=== PATIENT | male | born 1960 | race Caucasian/White ===

== ENCOUNTER 2016-06-24 13:15 | Inpatient (IN) | payer OTHER ==
[~2016-06-24] VITALS: Ht 175.3 cm; Wt 110.3 kg
[~2016-06-24 13:15] MED LIST: AMLO-110 PO; INDO50CA97 PO; LISI40TA PO; PANT1TAB48 PO; SIMV20TA5 PO
[2016-06-24] MEDS ORDERED: SODIUM CHLORIDE 0.9% 1000ML 1,000 ML IV STA ×3 (14:15→15:54)
[2016-06-24] MEDS ORDERED: ALBUT/IPRATROP 3MG/0.5MG NEB 3 ML VIAL INH ONE (14:15)
[2016-06-24] MEDS ORDERED: METHYLPREDNISOLONE 125 MG VIAL IV STA (14:15)
[2016-06-24] MEDS ORDERED: AZITTAB PO (14:25)
[2016-06-24] MEDS ORDERED: PRED20TA PO (14:32)
[2016-06-24 14:55] VITALS: PULSE 96; O2SAT 94
--- NOTE | 2016-06-24 14:55 | DIAGNOSTIC IMAGING REPORT ---
CHEST ONE VIEW PORTABLE CLINICAL HISTORY: Shortness of breath COMPARISON STUDY: 08/08/2012 FINDINGS: The heart is enlarged. There are left basal airspace opacities, suspicious for pneumonitis. There is no overt failure. There is no significant pleural fluid.[ IMPRESSION: Mild cardiomegaly. Interval development of left basal airspace opacities suspicious for a pneumonitis. This should be correlated clinically. Films subsequent to treatment are recommended in follow-up. Electronically signed by: Guru De La Cruz M.D. 06/24/2016 2:53 PM
[2016-06-24 15:18] LABS: BASO % 0.1 %; BASO ABS # 0.01 K/uL (0-0.2); COMPLETE YES; HEMATOCRIT 38.4 % (42-52); IG% 0.3 %; LYMPH % 5.4 %; LYMPH ABS # 0.67 K/uL (1.2-3.4); MEAN CELL VOLUME 94.8 fL (80-100); MEAN CORPUSCULAR HEMOGLOBIN 33.8 pg (25-34); MEAN CORPUSCULAR HGB CONC 35.7 g/dl (32-36); MEAN PLATELET VOLUME 11.3 fL (7.4-10.4); MONO % 5.2 %; PLATELET COUNT 193 K/uL (130-400); RED BLOOD COUNT 4.05 M/uL (4.7-6.1); WHITE BLOOD COUNT 12.37 K/uL (4.8-10.8)
[2016-06-24] MEDS ORDERED: LEVAQUIN 750MG / 150ML D5W IV STA (15:34)
[2016-06-24 15:37] LABS: BLOOD UREA NITROGEN 43 mg/dl (7-18); BUN/CREATININE RATIO 17.4 (10-20); CALCIUM 9.2 mg/dl (8.5-10.1); CARBON DIOXIDE 22 mmol/L (21-32); CHLORIDE 102 mmol/L (98-107); GLUCOSE 170 mg/dl (70-99); POTASSIUM 3.3 mmol/L (3.5-5.1); SODIUM 138 mmol/L (136-145)
[2016-06-24] MEDS ORDERED: ACETAMINOPHEN 325 MG TAB PO PRN (17:15)
[2016-06-24] MEDS ORDERED: POLYETHYLENE (MIRALAX) 17 GM PACK PO PRN (17:15)
[2016-06-24] MEDS ORDERED: INDOMETHACIN 25 MG CAP PO PRN (17:15)
[2016-06-24] MEDS ORDERED: ALUMINUM/MAGNESIUM/SIMETH (MAALOX MAX) 30 ML UDC PO PRN (17:15)
[2016-06-24] MEDS ORDERED: ONDANSETRON INJ 2 MG/ML 2 ML VIAL IV PRN (17:15)
[2016-06-24] MEDS ORDERED: MAGNESIUM HYDROXIDE SUSP 30 ML UDC PO PRN (17:15)
[2016-06-24] MEDS ORDERED: NICOTINE 21 MG/24 HR TDSY TD PRN (17:30)
[2016-06-24] MEDS ORDERED: SODIUM CHLORIDE 0.9% 1000ML 1,000 ML IV SCH (17:30)
--- NOTE | 2016-06-24 17:54 | History and Physical ---
History & Physical Date & Time of Service: Jun 24, 2016 at 17:31 Chief Complaint: SOB Primary Care Physician: Soham Mcclain M.D. History of Present Illness Source: patient Mr. Cheema is a 55 y/o male with PMHx of Asthma, GERD, HLD, HTN, and CKD Stage I who presents to the ED for complaints of worsening SOB and productive cough x several days. Patient reports he was at his PCP yesterday and diagnosed with PNA and given Prednisone taper and Z-tano that he has started. He states that symptoms did not worsen since presentation to the ED however he did notice pink blood tinged sputum after using home nebulizer treatment. He does report fevers with the highest being 102.7. He has been using Ibuprofen without relief. He reports that he had rhinorrhea that has improved. Associated lightheadedness without falls, sore throat, and dyspnea on exertion. He reports decreased appetite over past few days but reports he is hungry now. He is a 1 1/2 ppd cigarette smoker. In the ED, lactic acid elevated, mild leukocytosis, normotensive, and afebrile. CXR suggest LLL opacity more consistent with pneumonitis. Levaquin 750 mg IV, Solu-Medrol 125 mg, and Duoneb treatment initiated. He will be admitted to Med/ Surg for further evaluation and care. Reassessment - Patient lactic acid returned at 4.8. Patient assessed at ED beside. Will transfer patient to telemetry for Sepsis 2/2 CAP. Patient remains normotensive however reports his BPs are normally 130/70s. He has received 3L fluids. Patient does not report worsening of symptoms and is resting in bed in no acute distress without labored breathing. Will continue to hydrate him and trend labs in AM. 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) Drug Use: none Marital Status: Immunizations History of Influenza Vaccine: No Influenza Vaccine Date: May 09, 2007 History of Tetanus Vaccine?: No History of Pneumococcal: No History of Hepatitis B Vaccine: No Multi-Drug Resistant Organisms History of MDRO: No Allergies Coded Allergies: No Known Allergies (Verified , 06/24/16) Home Medications Scheduled Amlodipine (Norvasc), 5 MG PO QAM Azithromycin (Zithromax Z-Tano), 1 PKT PO UD Lisinopril (Zestril), 40 MG PO QAM Pantoprazole (Protonix), 40 MG PO QAM Prednisone (Prednisone), 20 MG PO DIRECTED Simvastatin (Zocor), 20 MG PO QPM Scheduled PRN Indomethacin (Indocin), 50 MG PO TID PRN for APIN Review of Systems Constitutional: + fever, No chills, No sweats Eyes: No worsening of vision ENT: + sore throat, No nasal symptoms Respiratory: + cough, + dyspnea on exertion, + sputum, + wheezing, No dyspnea at rest Cardiovascular: No chest pain Abdomen: No constipation, No diarrhea, No nausea, No pain, No vomiting Musculoskeletal: No calf pain, No swelling Genitourinary - Male: No dysuria Neurologic: + vertigo Endocrine: + fatigue Hematologic / Lymphatic: No abnormal bleeding/bruising, No clotting problems Integumentary: No rash Physical Exam Vital Signs Date Time Temp Pulse Resp B/P Pulse Ox O2 Delivery O2 Flow Rate FiO2 06/24/16 15:21 82 17 116/70 95 Nebulizer 7.0 06/24/16 14:55 96 22 94 Room Air 06/24/16 14:39 87 06/24/16 13:34 36.4 90 20 122/76 94 Room Air General Appearance: WD/WN, no apparent distress, + pertinent finding (poor dentition; breaths mostly through mouth) Head: normocephalic, atraumatic Eyes: sclerae normal ENT: hearing grossly normal Neck: supple, no JVD, trachea midline Respiratory/Chest: no respiratory distress, no accessory muscle use, + wheezing (minimal scattered expiratory wheezes throughout; rhonchi bases bilat) Cardiovascular: regular rate, rhythm, no gallop, no murmur Abdomen/GI: normal bowel sounds, non tender, soft Back: normal inspection, no CVA tenderness Extremities/Musculoskelatal: no calf tenderness, no pedal edema Neurologic/Psych: no motor/sensory deficits, alert, oriented x 3 Skin: normal color, warm/dry Diagnostics Laboratory Results Results Past 24 Hours Test 06/24/16 15:00 06/24/16 15:08 06/24/16 17:11 Range/Units White Blood Count 12.37 4.8-10.8 K/uL Red Blood Count 4.05 4.7-6.1 M/uL Hemoglobin 13.7 14.0-18.0 g/dL Hematocrit 38.4 42-52 % Mean Corpuscular Volume 94.8 80-100 fL Mean Corpuscular Hemoglobin 33.8 25-34 pg Mean Corpuscular Hemoglobin Concent 35.7 32-36 g/dl Platelet Count 193 130-400 K/uL Mean Platelet Volume 11.3 7.4-10.4 fL Neutrophils (%) (Auto) 89.0 % Lymphocytes (%) (Auto) 5.4 % Monocytes (%) (Auto) 5.2 % Eosinophils (%) (Auto) 0.0 % Basophils (%) (Auto) 0.1 % Neutrophils # (Auto) 11.01 1.4-6.5 K/uL Lymphocytes # (Auto) 0.67 1.2-3.4 K/uL Monocytes # (Auto) 0.64 0.11-0.59 K/uL Eosinophils # (Auto) 0.00 0-0.5 K/uL Basophils # (Auto) 0.01 0-0.2 K/uL RDW Standard Deviation 48.8 36.4-46.3 fL RDW Coefficient of Variation 14.1 11.5-14.5 % Immature Granulocyte % (Auto) 0.3 % Immature Granulocyte # (Auto) 0.04 0.00-0.02 K/uL D-Dimer 1070 0-500 ug/L FEU Sodium Level 138 136-145 mmol/L Potassium Level 3.3 3.5-5.1 mmol/L Chloride Level 102 98-107 mmol/L Carbon Dioxide Level 22 21-32 mmol/L Anion Gap 14.0 3-11 mmol/L Blood Urea Nitrogen 43 7-18 mg/dl Creatinine 2.50 0.60-1.40 mg/dl Est Creatinine Clear Calc Drug Dose 39.1 ml/min Estimated GFR () 32.1 Estimated GFR (Non- 27.7 BUN/Creatinine Ratio 17.4 10-20 Random Glucose 170 70-99 mg/dl Calcium Level 9.2 8.5-10.1 mg/dl Total Creatine Kinase 199 39-308 U/L Creatine Kinase MB 1.9 0.5-3.6 ng/ml Creatine Kinase MB Ratio 1.0 0-3.0 Troponin I < 0.015 0-0.045 ng/ml Bedside Lactic Acid Venous 2.78 0.90-1.70 mmol/L Microbiology Results 06/24/16 Blood Culture, Received Pending 06/24/16 Blood Culture, Received Pending Diagnostic Radiology CHEST ONE VIEW PORTABLE CLINICAL HISTORY: Shortness of breath COMPARISON STUDY: 08/08/2012 FINDINGS: The heart is enlarged. There are left basal airspace opacities, suspicious for pneumonitis. There is no overt failure. There is no significant pleural fluid.[ IMPRESSION: Mild cardiomegaly. Interval development of left basal airspace opacities suspicious for a pneumonitis. This should be correlated clinically. Films subsequent to treatment are recommended in follow-up. Electronically signed by: Guru De La Cruz M.D. 06/24/2016 2:53 PM Impression Assessment and Plan Mr. Cheema is a 55 y/o male with PMHx of Asthma, GERD, HLD, HTN, and CKD Stage I who presents to the ED for complaints of worsening SOB and productive cough x several days. In the ED, lactic acid elevated, mild leukocytosis, normotensive, and afebrile. CXR suggest LLL opacity more consistent with pneumonitis. Levaquin 750 mg IV, Solu-Medrol 125 mg, and Duoneb treatment initiated. He will be admitted to Med/Surg for further evaluation and care. Sepsis: - Assessment - a respiratory source is likely - will R/O urinary source - BMP now - Telemetry for closer monitoring Community Acquired Pneumonia with Possible Asthma Exacerbation: Elevated Lactic - Assessment - imaging suggesting LLL opacity but notes pneumonitis; patient chest is tight to auscultation with expiratory wheezing -- D-Dimer 1070 however patient is not hypoxic and this has been a progressive course - Repeat lactic acid now - Levoquin 750 mg IV daily - Cefepime 2 g Q12H - Methylprednisone 40 mg IV BID - Duonebs QID and Q2H PRN - Continuous Pulse Ox overnight EMELYN Superimposed on CKD Stage I: - NSS at 125 mL/hr - Will hold Lisinopril in setting of EMELYN - Avoid nephrotoxic agents HTN: - Will hold Amlodipine 5 mg daily - Lisinopril held 2/2 EMELYN - Hydralazine 10 mg IV PRN HLD: - Simvastatin 20 mg daily DVT Prophylaxis: - Lovenox 40 mg SC daily Code Status: - FULL RESUSCITATION PA Physician Supervision Note: I interviewed and examined the patient. Discussed with Anisha DENG and agree with findings and plan as documented in the note. Any exceptions or clarifications are listed here: None pt admitted with pneumonitis but clinically acting like sepsis, does not have health care exposure with exception that is nurse at long term repeat LA did go up past 4, reasses of tissue perfusion, seems good, pt is awake and alert, warm and good cap refill, additional fluids given vitals lungs with coarse breath sounds but no focal loss, no other clinical findings for other infection Sepsis, broaden the antibiotics to Cefepime and levaquin, close monitoring in tele, may consider ID evaluation and repeat cxr 06/25 Documented By: Lex Fonseca Level of Care Med/Surg Resuscitation Status FULL RESUSCITATION VTE Prophylaxis VTE Risk Assessment Done? Y/N: Yes Risk Level: Moderate Given or contraindicated: Enoxaparin (Lovenox)SQ Social Service Consult None Apply
[2016-06-24] MEDS ORDERED: HydrALAZINE HCL 20 MG/ML VIAL IV. PRN (18:00)
[2016-06-24] MEDS ORDERED: ALBUT/IPRATROP 3MG/0.5MG NEB 3 ML VIAL INH PRN (19:30)
[2016-06-24 20:30] VITALS: BP 123/65; PULSE 96; TEMP 36.7; O2SAT 94; Ht 175.3 cm; Wt 110.3 kg
[2016-06-24 20:33] LABS: BUN/CREATININE RATIO 17.9 (10-20); CALCIUM 8.4 mg/dl (8.5-10.1); CREATININE 2.2 mg/dl (0.60-1.40); POTASSIUM 3.1 mmol/L (3.5-5.1)
--- NOTE | 2016-06-24 20:38 | EMERGENCY ROOM VISIT NOTE ---
History Report prepared by Arnel: Kristina Tejada Under the Supervision of: Dr. Tommy Schroeder M.D. First contact with patient: 14:10 Chief Complaint: SHORTNESS OF BREATH Stated Complaint: SOB Nursing Triage Summary: Pt states dx last night pnx, given z-tano, inhaler and prednisone. Prod cough of pink/clear sputum. [place] after doing neb tx. History of Present Illness The patient is a 55 year old male who presents to the Emergency Room with complaints of worsening shortness of breath for the past few days. He was diagnosed with pneumonia at his PCP's office yesterday and started on prednisone and a Z-Tano. He notes fevers, cough, and slight rhinorrhea. He has been using a breathing treatment and notes that afterwards he coughs up phlegm that is tinged with pink. He is feeling lightheaded and notes a decreased appetite for the past 4 days. The patient denies chest pain, recent travel, leg swelling, and any history of blood clots. He does not take any aspirin or blood thinners. Source of History: patient Onset: 4 days ago Position: chest (respiratory) Quality: other (SOB) Timing: worsening Modifying Factors (Relieving): other (breathing treatment ) Associated Symptoms: + cough (with pink sputum), + fevers Note: Pt notes lightheadedness and rhinorrhea. Denies recent travel, leg swelling, and history of blood clots. Review of Systems See HPI for pertinent positives & negatives. A total of 10 systems reviewed and were otherwise negative. Past Medical & Surgical Medical Problems: (1) Asthma (2) Hypertension (3) Pneumonia (4) Sepsis Surgical Problems: (1) Hx of cholecystectomy Family History Diabetes mellitus Hypertension Social History Smoking Status: Current Every Day Smoker Alcohol Use: occasionally Marital Status: Housing Status: lives with significant other Occupation Status: retired Current/Historical Medications Scheduled Amlodipine (Norvasc), 5 MG PO QAM Azithromycin (Zithromax Z-Tano), 1 PKT PO UD Lisinopril (Zestril), 40 MG PO QAM Pantoprazole (Protonix), 40 MG PO QAM Prednisone (Prednisone), 20 MG PO DIRECTED Simvastatin (Zocor), 20 MG PO QPM Scheduled PRN Indomethacin (Indocin), 50 MG PO TID PRN for APIN Allergies Coded Allergies: No Known Allergies (Verified , 06/24/16) Physical Exam Vital Signs Date Time Temp Pulse Resp B/P Pulse Ox O2 Delivery O2 Flow Rate FiO2 06/24/16 18:59 109/76 06/24/16 18:55 100 20 06/24/16 18:42 100 06/24/16 18:29 134/87 06/24/16 18:25 106 24 06/24/16 18:20 97 22 06/24/16 17:58 120/69 06/24/16 17:50 104 25 06/24/16 17:28 118/61 06/24/16 17:20 119 25 06/24/16 17:15 109 21 06/24/16 16:59 106/75 06/24/16 16:45 107 20 95 06/24/16 16:29 111/73 06/24/16 16:15 104 27 06/24/16 15:59 130/67 06/24/16 15:45 103 20 06/24/16 15:28 128/72 06/24/16 15:21 82 17 116/70 95 Nebulizer 7.0 06/24/16 15:19 116/70 06/24/16 15:15 96 17 06/24/16 14:55 96 22 94 Room Air 06/24/16 14:45 91 20 06/24/16 14:39 87 06/24/16 13:34 36.4 90 20 122/76 94 Room Air Physical Exam GENERAL: Patient is ill appearing and in mild distress. HEENT: No acute trauma, normocephalic atraumatic, mucous membranes dry, no nasal congestion, no scleral icterus. NECK: No stridor, no adenopathy, no meningismus, trachea is midline. LUNGS: Diffuse wheezing in all lung mack, decreased breath sounds left lower lobe, crackles in mid left lung mack. HEART: Regular rate and rhythm. No murmurs, rubs, gallops appreciated. ABDOMEN: Soft, nontender, bowel sounds positive, no masses appreciated, no peritonitis. BACK: No midline tenderness, no CVA tenderness EXTREMITIES: Normal motion all extremities, no cyanosis, no edema. NEUROLOGIC: Alert and oriented, no acute motor or sensory deficits, no focal weakness, cranial nerves grossly intact. SKIN: Diaphoretic. No rash, no jaundice. Medical Decision & Procedures ER Provider Diagnostic Interpretation: Radiology results as stated below per my review and radiologist interpretation: CHEST ONE VIEW PORTABLE CLINICAL HISTORY: Shortness of breath COMPARISON STUDY: 08/08/2012 FINDINGS: The heart is enlarged. There are left basal airspace opacities, suspicious for pneumonitis. There is no overt failure. There is no significant pleural fluid.[ IMPRESSION: Mild cardiomegaly. Interval development of left basal airspace opacities suspicious for a pneumonitis. This should be correlated clinically. Films subsequent to treatment are recommended in follow-up. Electronically signed by: Guru De La Cruz M.D. 06/24/2016 2:53 PM Laboratory Results 06/24/16 15:00 Red Blood Count 4.05, Mean Corpuscular Volume 94.8, Mean Corpuscular Hemoglobin 33.8, Mean Corpuscular Hemoglobin Concent 35.7, Mean Platelet Volume 11.3, Neutrophils (%) (Auto) 89.0, Lymphocytes (%) (Auto) 5.4, Monocytes (%) (Auto) 5.2, Eosinophils (%) (Auto) 0.0, Basophils (%) (Auto) 0.1, Neutrophils # (Auto) 11.01, Lymphocytes # (Auto) 0.67, Monocytes # (Auto) 0.64, Eosinophils # (Auto) 0.00, Basophils # (Auto) 0.01 Test 06/24/16 15:00 06/24/16 15:08 06/24/16 17:41 White Blood Count 12.37 K/uL (4.8-10.8) Red Blood Count 4.05 M/uL (4.7-6.1) Hemoglobin 13.7 g/dL (14.0-18.0) Hematocrit 38.4 % (42-52) Mean Corpuscular Volume 94.8 fL (80-100) Mean Corpuscular Hemoglobin 33.8 pg (25-34) Mean Corpuscular Hemoglobin Concent 35.7 g/dl (32-36) Platelet Count 193 K/uL (130-400) Mean Platelet Volume 11.3 fL (7.4-10.4) Neutrophils (%) (Auto) 89.0 % Lymphocytes (%) (Auto) 5.4 % Monocytes (%) (Auto) 5.2 % Eosinophils (%) (Auto) 0.0 % Basophils (%) (Auto) 0.1 % Neutrophils # (Auto) 11.01 K/uL (1.4-6.5) Lymphocytes # (Auto) 0.67 K/uL (1.2-3.4) Monocytes # (Auto) 0.64 K/uL (0.11-0.59) Eosinophils # (Auto) 0.00 K/uL (0-0.5) Basophils # (Auto) 0.01 K/uL (0-0.2) RDW Standard Deviation 48.8 fL (36.4-46.3) RDW Coefficient of Variation 14.1 % (11.5-14.5) Immature Granulocyte % (Auto) 0.3 % Immature Granulocyte # (Auto) 0.04 K/uL (0.00-0.02) D-Dimer 1070 ug/L FEU (0-500) Total Creatine Kinase 199 U/L (39-308) Creatine Kinase MB 1.9 ng/ml (0.5-3.6) Creatine Kinase MB Ratio 1.0 (0-3.0) Troponin I < 0.015 ng/ml (0-0.045) Bedside Lactic Acid Venous 2.78 mmol/L (0.90-1.70) Lactic Acid Level 4.8 mmol/L (0.4-2.0) Laboratory results as reviewed by me. Medications Administered Medications (Trade) Dose Ordered Sig/Eusebia Route Start Time Stop Time Status Last Admin Dose Admin Sodium Chloride (Nss 1000ml) 1,000 ml @ 999 mls/hr Q1H1M STAT IV 06/24/16 14:15 06/24/16 15:15 DC 06/24/16 15:22 999 MLS/HR Methylprednisolone Sodium Succinate (Solu-Medrol IV) 125 mg NOW STAT IV 06/24/16 14:15 06/24/16 14:17 DC 06/24/16 15:22 125 MG Albuterol/ Ipratropium 12 ml 12 ml ONE ONCE INH 06/24/16 14:15 06/24/16 14:17 DC 06/24/16 14:55 12 ML Sodium Chloride (Nss 1000ml) 1,000 ml @ 999 mls/hr Q1H1M STAT IV 06/24/16 15:34 06/24/16 16:34 DC 06/24/16 17:34 999 MLS/HR Levofloxacin 750 mg 750 mg NOW STAT IV 06/24/16 15:34 06/24/16 15:35 DC 06/24/16 16:37 750 MG Sodium Chloride (Nss 1000ml) 1,000 ml @ 999 mls/hr Q1H1M STAT IV 06/24/16 15:54 06/24/16 16:54 DC 06/24/16 17:34 999 MLS/HR ECG Indication: SOB/dyspnea Rate (beats per minute): 84 Rhythm: sinus rhythm Findings: PAC, no acute ischemic change ED Course 1410: The patient was evaluated in room C6. A complete history and physical exam was performed. 1415: Duoneb 12 ml INH, Solu-Medrol 125 mg IV, NSS 1000 ml @ 999 mls/hr IV 1534: Levofloxacin 750 mg IV, NSS 1000 ml @ 999 mls/hr IV 1554: NSS 1000 ml @ 999 mls/hr IV 1557: I reassessed the patient at this time. He is resting comfortably. I discussed the results and treatment plan with the patient. I answered all pertaining questions that he had. He expressed understanding and verbalized agreement. 1615: I spoke with Dr. Fonseca. We discussed the patient's results and treatment plan. The patient will be evaluated by the [facility] for further management. Medical Decision Differential: Infectious, Reactive Airway Disease, Pneumonia, Pneumothorax, COPD , CHF, ACS, Pulmonary Embolism, MSK, GI, Dissection, amongst other etiologies entertained. 55 yr old septic male with LLL infiltrate and ill appearing though not acutely hypoxic nor hypotensive on arrival. Labs reveal he is in acute renal failure thus will hold on CT at this time. Fluid resus, IV levaquin, and will bring in to hospital for further treatment. Lactic acid elevated consistent with sepsis. Patient stable throughout ED stay. Consults Time Called: 161 Consulting Physician: Dr. Fonseca Returned Call: [address] Fonseca. We discussed the patient's results and treatment plan. The patient will be evaluated by the [facility] for further management. Impression Primary Impression: Pneumonia Additional Impressions: Sepsis, Acute renal failure Scribe Attestation The scribe's documentation has been prepared under my direction and personally reviewed by me in its entirety. I confirm that the note above accurately reflects all work, treatment, procedures, and medical decision making performed by me. Departure Information Dispostion Being Evaluated By Hospitalist Referrals Soham Mcclain M.D. (PCP) Patient Instructions A Signature Page, My [facility]
[2016-06-24] MEDS ORDERED: LEVOFLOXACIN CONSULT ACTIVE PRN (20:45)
[2016-06-24] MEDS ORDERED: CEFEPIME CONSULT ACTIVE PRN ×2 (20:45)
[2016-06-24 20:58] LABS: PROTHROMBIN TIME (PATIENT) 10.4 SECONDS (9.0-12.0)
[2016-06-24] MEDS ORDERED: POTASSIUM CHLORIDE 10 MEQ TABCR PO ONE (21:00)
[2016-06-24] MEDS ORDERED: LEVALBUTEROL 1.25MG/0.5ML NEB INH SCH (21:00)
[2016-06-24] MEDS: CEFEPIME IV 2,000 MG in DEXTROSE 5% 100ML 100 ML IV SCH (21:28)
[2016-06-24] MEDS: SIMVASTATIN 20 MG TAB PO SCH (21:29)
[2016-06-24] MEDS: POTASSIUM CHLORIDE INJ 40 MEQ in SODIUM CHLORIDE 0.9% 1000ML 1,000 ML IV SCH (22:05)
[2016-06-24] MEDS: ENOXAPARIN 40 MG/0.4 ML SYR SQ SCH (22:09)
[2016-06-24 23:20] VITALS: BP 96/60; PULSE 98; TEMP 36.6; O2SAT 93
[2016-06-25] VITALS (13 sets, daily range): BP systolic 126–132; BP diastolic 64–83; PULSE 56–100; TEMP 36.3–36.8; O2SAT 92–97
[2016-06-25] MEDS ORDERED: IPRATROPIUM BROMIDE NEB SOLN 0.02% 2.5 ML VIAL INH SCH
[2016-06-25 04:10] LABS: URINE APPEARANCE CLEAR (CLEAR); URINE BILIRUBIN NEG (NEG); URINE COLOR YELLOW; URINE EPITHELIAL CELL AUTO >30 /lpf (0-5); URINE NITRITE NEG (NEG); URINE SPECIFIC GRAVITY 1.017 (1.000-1.030); UROBILINOGEN NEG (NEG); ZZUR CULT IF INDIC CLEAN CATCH NO
[2016-06-25 04:18] LABS: MANUAL MICROSCOPIC REQUIRED? NO; REVIEW REQ? YES
[2016-06-25] MEDS: POTASSIUM CHLORIDE INJ 40 MEQ in SODIUM CHLORIDE 0.9% 1000ML 1,000 ML IV SCH (05:49)
[2016-06-25 07:07] LABS: BASO % 0.1 %; BASO ABS # 0.01 K/uL (0-0.2); COMPLETE YES; HEMATOCRIT 35.2 % (42-52); IG% 0.2 %; LYMPH % 7.7 %; LYMPH ABS # 0.68 K/uL (1.2-3.4); MEAN CORPUSCULAR HEMOGLOBIN 34.2 pg (25-34); MEAN CORPUSCULAR HGB CONC 35.2 g/dl (32-36); MEAN PLATELET VOLUME 11.7 fL (7.4-10.4); PLATELET COUNT 190 K/uL (130-400); RED BLOOD COUNT 3.63 M/uL (4.7-6.1); WHITE BLOOD COUNT 8.88 K/uL (4.8-10.8)
[2016-06-25] MEDS: ALBUT/IPRATROP 3MG/0.5MG NEB 3 ML VIAL INH SCH ×4 (07:07→19:29)
[2016-06-25 07:33] LABS: BUN/CREATININE RATIO 20.6 (10-20); CALCIUM 8.5 mg/dl (8.5-10.1); CREATININE 1.7 mg/dl (0.60-1.40); MAGNESIUM 1.7 mg/dl (1.8-2.4); POTASSIUM 3.8 mmol/L (3.5-5.1)
[2016-06-25] MEDS: PANTOprazole SOD 40 MG TAB PO SCH (07:40)
[2016-06-25] MEDS: METHYLPREDNISOLONE IV 40 MG in SYRINGE 0 ML IV SCH ×2 (07:57→20:43)
[2016-06-25] MEDS ORDERED: AMLODIPINE BESYLATE 5 MG TAB PO SCH (09:00)
--- NOTE | 2016-06-25 09:25 | DIAGNOSTIC IMAGING REPORT ---
CHEST 2 VIEWS ROUTINE CLINICAL HISTORY: Shortness of breath. Pneumonia. COMPARISON STUDY: 06/24/2016 FINDINGS: The cardiac and mediastinal contours remain stable. There are persistent left lower lobe airspace opacities suspicious for a pneumonitis. There is no significant pleural fluid.[ IMPRESSION: Persistent left lower lobe airspace opacities suspicious for a pneumonitis. Electronically signed by: Guru De La Cruz M.D. 06/25/2016 9:23 AM
[2016-06-25] MEDS: NICOTINE 21 MG/24 HR TDSY TD SCH (10:24)
--- NOTE | 2016-06-25 15:11 | Progress Note ---
Subjective Date of Service: Jun 25, 2016. Subjective Pt evaluation today including: conversation w/ patient, chart review, review of studies, conversation w/ software developer consultant Pain: none PO Intake: well Voiding: no voiding problems seen and examined, feels better,s till coughs but his SOB improved, no Cp, on and off has fever,on IVF eats and drinks well Problem List Medical Problems: (1) Acute renal failure Status: Acute Review of Systems Constitutional: + fever Eyes: No diplopia, No discharge, No eye pain, No problem reported, No redness, No see HPI, No worsening of vision ENT: No dental problems, No hearing loss, No nasal symptoms, No problem reported, No see HPI, No sore throat, No tinnitus, No trouble swallowing, No unusual epistaxis Respiratory: + cough, + sputum, + wheezing Cardiac: No PND, No chest pain, No claudication, No edema, No orthopnea, No palpitations, No problem reported, No see HPI Abdomen: No GI bleeding, No constipation, No diarrhea, No nausea, No pain, No problem reported, No see HPI, No vomiting Musculoskeletal: No calf pain, No joint pain, No muscle pain, No problem reported, No see HPI, No swelling Male : No dysuria, No hematuria, No incontinence, No nocturia more than once/ night, No problem reported, No see HPI, No sexual dysfunction, No slowing stream , No urinary frequency Neurologic: No balance problems, No memory loss, No numbness/tingling, No paralysis, No problem reported, No see HPI, No vertigo, No weakness Psychiatric: No anhedonism, No anxiety, No depression symptoms, No insomnia, No problem reported, No see HPI, No substance abuse Medications Current Inpatient Medications Medications (Trade) Dose Ordered Sig/Eusebia Route Start Time Stop Time Status Last Admin Dose Admin Enoxaparin Sodium (Lovenox Inj) 40 mg Q24H SQ 06/24/16 22:00 07/24/16 21:59 06/24/16 22:09 40 MG Acetaminophen (Tylenol Tab) 650 mg Q4H PRN PO 06/24/16 17:15 07/24/16 17:14 Al Hydrox/Mg Hydrox/Simethicone (Maalox Max Susp) 15 ml Q4H PRN PO 06/24/16 17:15 07/24/16 17:14 Magnesium Hydroxide (Milk Of Magnesia Susp) 30 ml Q6H PRN PO 06/24/16 17:15 07/24/16 17:14 Polyethylene (Miralax Powder Packet) 17 gm DAILY PRN PO 06/24/16 17:15 07/24/16 17:14 Ondansetron HCl 4 mg 4 mg Q6H PRN IV 06/24/16 17:15 07/24/16 17:14 Levofloxacin/Prmx (Levaquin / D5w/ Premixed D5W) 150 ml @ 100 mls/hr Q24H IV 06/25/16 16:00 07/03/16 17:29 Indomethacin (Indocin Cap) 50 mg TID PRN PO 06/24/16 17:15 07/24/16 17:14 Pantoprazole Sodium (Protonix Tab) 40 mg QAM PO 06/25/16 09:00 07/25/16 08:59 06/25/16 07:40 40 MG Simvastatin 20 mg 20 mg QPM PO 06/24/16 21:00 07/24/16 20:59 06/24/16 21:29 20 MG Methylprednisolone Sodium Succinate/ Syringe (Solu-Medrol IV/ Syringe) 0.64 ml @ 1.5 mls/min BID IV 06/25/16 09:00 07/26/16 22:00 06/25/16 07:57 1.5 MLS/MIN Hydralazine HCl (HydrALAZINE INJ) 10 mg Q6 PRN IV. 06/24/16 18:00 07/24/16 17:59 Albuterol/ Ipratropium (Duoneb) 3 ml QIDR INH 06/24/16 20:00 07/24/16 19:59 06/25/16 11:18 3 ML Albuterol/ Ipratropium 3 ml 3 ml Q2H PRN INH 06/24/16 19:30 07/24/16 19:29 Cefepime HCl/ Dextrose (Maxipime IV/D5 100ml) 112.5 ml @ 200 mls/hr Q24H IV 06/24/16 21:00 07/26/16 23:00 06/24/16 21:28 200 MLS/HR Cefepime HCl (Consult) 1 ea UD PRN N/A 06/24/16 20:45 07/24/16 20:44 Levofloxacin (Consult) 1 ea UD PRN N/A 06/24/16 20:45 07/24/16 20:44 Nicotine (Nicoderm Cq 21MG Patch) 1 patch QAM TD 06/25/16 10:00 07/25/16 09:59 06/25/16 10:24 1 PATCH Miscellaneous (Remove Nicoderm Patch) 1 ea HS N/A 06/25/16 21:00 07/25/16 20:59 Objective Vital Signs Date Time Temp Pulse Resp B/P Pulse Ox O2 Delivery O2 Flow Rate FiO2 06/25/16 08:19 36.7 95 18 132/81 94 Room Air 06/25/16 07:07 82 18 92 Room Air 06/25/16 04:04 Room Air 06/25/16 02:47 36.8 90 23 126/78 92 Room Air 06/25/16 00:02 Room Air 06/24/16 23:20 36.6 98 19 96/60 93 Room Air 06/24/16 20:30 36.7 96 16 123/65 94 Room Air 06/24/16 19:29 /42 06/24/16 19:25 101 23 06/24/16 18:59 109/76 06/24/16 18:55 100 20 06/24/16 18:42 100 06/24/16 18:29 134/87 06/24/16 18:25 106 24 06/24/16 18:20 97 22 06/24/16 17:58 120/69 06/24/16 17:50 104 25 06/24/16 17:28 118/61 06/24/16 17:20 119 25 06/24/16 17:15 109 21 06/24/16 16:59 106/75 06/24/16 16:45 107 20 95 06/24/16 16:29 111/73 06/24/16 16:15 104 27 06/24/16 15:59 130/67 06/24/16 15:45 103 20 06/24/16 15:28 128/72 06/24/16 15:21 82 17 116/70 95 Nebulizer 7.0 06/24/16 15:19 116/70 06/24/16 15:15 96 17 06/24/16 14:55 96 22 94 Room Air 06/24/16 14:45 91 20 12/30/16 14:39 87 06/24/16 13:34 36.4 90 20 122/76 94 Room Air Physical Exam General Appearance: no apparent distress, + obese Eyes: normal inspection ENT: normal ENT inspection, pharynx normal Neck: supple, no JVD, no carotid bruits Respiratory/Chest: chest non-tender, no accessory muscle use, + decreased breath sounds, + wheezing Cardiovascular: regular rate, rhythm, no edema, no gallop, no JVD, no murmur Abdomen: normal bowel sounds, non tender, soft, no organomegaly Extremities: normal range of motion, non-tender, normal inspection, no pedal edema Neurologic/Psychiatric: no motor/sensory deficits, alert, normal mood/affect, oriented x 3 Skin: normal color, warm/dry, no rash Lymphatic: no adenopathy Laboratory Results Last 24 Hours Test 06/24/16 15:00 06/24/16 15:08 06/24/16 17:41 06/24/16 20:08 White Blood Count 12.37 K/uL Red Blood Count 4.05 M/uL Hemoglobin 13.7 g/dL Hematocrit 38.4 % Mean Corpuscular Volume 94.8 fL Mean Corpuscular Hemoglobin 33.8 pg Mean Corpuscular Hemoglobin Concent 35.7 g/dl Platelet Count 193 K/uL Mean Platelet Volume 11.3 fL Neutrophils (%) (Auto) 89.0 % Lymphocytes (%) (Auto) 5.4 % Monocytes (%) (Auto) 5.2 % Eosinophils (%) (Auto) 0.0 % Basophils (%) (Auto) 0.1 % Neutrophils # (Auto) 11.01 K/uL Lymphocytes # (Auto) 0.67 K/uL Monocytes # (Auto) 0.64 K/uL Eosinophils # (Auto) 0.00 K/uL Basophils # (Auto) 0.01 K/uL RDW Standard Deviation 48.8 fL RDW Coefficient of Variation 14.1 % Immature Granulocyte % (Auto) 0.3 % Immature Granulocyte # (Auto) 0.04 K/uL Prothrombin Time 10.4 SECONDS Prothromb Time International Ratio 1.0 D-Dimer 1070 ug/L FEU Sodium Level 138 mmol/L 138 mmol/L Potassium Level 3.3 mmol/L 3.1 mmol/L Chloride Level 102 mmol/L 105 mmol/L Carbon Dioxide Level 22 mmol/L 18 mmol/L Anion Gap 14.0 mmol/L 15.0 mmol/L Blood Urea Nitrogen 43 mg/dl 39 mg/dl Creatinine 2.50 mg/dl 2.20 mg/dl Est Creatinine Clear Calc Drug Dose 39.1 ml/min 44.4 ml/min Estimated GFR () 32.1 37.4 Estimated GFR (Non- 27.7 32.3 BUN/Creatinine Ratio 17.4 17.9 Random Glucose 170 mg/dl 268 mg/dl Calcium Level 9.2 mg/dl 8.4 mg/dl Total Creatine Kinase 199 U/L Creatine Kinase MB 1.9 ng/ml Creatine Kinase MB Ratio 1.0 Troponin I < 0.015 ng/ml Bedside Lactic Acid Venous 2.78 mmol/L Lactic Acid Level 4.8 mmol/L Test 06/25/16 03:30 06/25/16 06:16 Urine Color YELLOW Urine Appearance CLEAR Urine pH 5.0 Urine Specific Wirt 1.017 Urine Protein TRACE Urine Glucose (UA) 2+ Urine Ketones TRACE Urine Occult Blood TRACE Urine Nitrite NEG Urine Bilirubin NEG Urine Urobilinogen NEG Urine Leukocyte Esterase NEG Urine WBC (Auto) 5-10 /hpf Urine RBC (Auto) 0-4 /hpf Urine Hyaline Casts (Auto) 10-30 /lpf Urine Epithelial Cells (Auto) >30 /lpf Urine Bacteria (Auto) 1+ Urine Renal Epithelial Cells /lpf Urine Pathogenic Casts See comments /lpf White Blood Count 8.88 K/uL Red Blood Count 3.63 M/uL Hemoglobin 12.4 g/dL Hematocrit 35.2 % Mean Corpuscular Volume 97.0 fL Mean Corpuscular Hemoglobin 34.2 pg Mean Corpuscular Hemoglobin Concent 35.2 g/dl Platelet Count 190 K/uL Mean Platelet Volume 11.7 fL Neutrophils (%) (Auto) 86.0 % Lymphocytes (%) (Auto) 7.7 % Monocytes (%) (Auto) 6.0 % Eosinophils (%) (Auto) 0.0 % Basophils (%) (Auto) 0.1 % Neutrophils # (Auto) 7.64 K/uL Lymphocytes # (Auto) 0.68 K/uL Monocytes # (Auto) 0.53 K/uL Eosinophils # (Auto) 0.00 K/uL Basophils # (Auto) 0.01 K/uL RDW Standard Deviation 51.6 fL RDW Coefficient of Variation 14.3 % Immature Granulocyte % (Auto) 0.2 % Immature Granulocyte # (Auto) 0.02 K/uL Sodium Level 139 mmol/L Potassium Level 3.8 mmol/L Chloride Level 109 mmol/L Carbon Dioxide Level 19 mmol/L Anion Gap 11.0 mmol/L Blood Urea Nitrogen 35 mg/dl Creatinine 1.70 mg/dl Est Creatinine Clear Calc Drug Dose 58.0 ml/min Estimated GFR () 51.1 Estimated GFR (Non- 44.1 BUN/Creatinine Ratio 20.6 Random Glucose 173 mg/dl Calcium Level 8.5 mg/dl Magnesium Level 1.7 mg/dl Hepatitis C Antibody Screen NEG Assessment and Plan Sepsis: -Fever , lactic acidosis, ARF - sec to pneumonia Community Acquired Pneumonia with Possible Asthma/COPD Exacerbation: Elevated Lactic - IVF - Levoquin 750 mg IV daily - Cefepime 2 g Q12H - DC steroid later today - DuoNeb QID and Q2H PRN - Continuous Pulse Ox overnight EMELYN Superimposed on CKD , improving - IVF - Will hold Lisinopril in setting of EMELYN - Avoid nephrotoxic agents -recheck labs Smoking smoke 1/5 pack daily add nicotine patch advised about quitting smoking HTN: - cont to hold Amlodipine 5 mg daily - Lisinopril held 2/2 EMELYN - Hydralazine 10 mg IV PRN HLD: - Simvastatin 20 mg daily DVT Prophylaxis: - Lovenox 40 mg SC daily Code Status: - FULL RESUSCITATION PLAn as above all DW pat and nurse needs few more days
[2016-06-25] MEDS ORDERED: LEVOFLOXACIN / D5W 750 MG in PREMIXED IN D5W 150 ML IV SCH (16:00)
[2016-06-25] MEDS: SODIUM CHLORIDE 0.9% 1000ML 1,000 ML IV SCH (19:56)
[2016-06-25] MEDS: CEFEPIME IV 2,000 MG in DEXTROSE 5% 100ML 100 ML IV SCH (20:43)
[2016-06-25] MEDS: SIMVASTATIN 20 MG TAB PO SCH (20:43)
[2016-06-25] MEDS: ENOXAPARIN 40 MG/0.4 ML SYR SQ SCH (23:15)
[2016-06-26 04:09] VITALS: BP 127/80; PULSE 82; TEMP 36.7; O2SAT 94
[2016-06-26 06:17] LABS: BUN/CREATININE RATIO 17.6 (10-20); CALCIUM 8.3 mg/dl (8.5-10.1); CREATININE 1.2 mg/dl (0.60-1.40); POTASSIUM 4.1 mmol/L (3.5-5.1)
[2016-06-26 07:47] VITALS: BP 129/78; PULSE 72; TEMP 36.8; O2SAT 92
[2016-06-26] MEDS: ALBUT/IPRATROP 3MG/0.5MG NEB 3 ML VIAL INH SCH (08:00)
[2016-06-26] MEDS: PANTOprazole SOD 40 MG TAB PO SCH (08:47)
[2016-06-26] MEDS: METHYLPREDNISOLONE IV 40 MG in SYRINGE 0 ML IV SCH (08:47)
[2016-06-26] MEDS: SODIUM CHLORIDE 0.9% 1000ML 1,000 ML IV SCH (08:49)
[2016-06-26] MEDS: NICOTINE 21 MG/24 HR TDSY TD SCH (08:49)
[2016-06-26] MEDS ORDERED: CEFEPIME IV 2,000 MG in DEXTROSE 5% 100ML 100 ML IV SCH (11:00)
[2016-06-26 11:30] VITALS: BP 144/82; PULSE 77; TEMP 36.6; O2SAT 95
[2016-06-26] MEDS ORDERED: IPRATROPIUM BROMIDE/ALBUTEROL respimat INH INH SCH ×2 (12:00)
[2016-06-26] MEDS ORDERED: PRVHFAIN INH (13:11)
[2016-06-26] MEDS ORDERED: LEVO1TAB35 PO (13:11)
[2016-06-26] MEDS ORDERED: PRED10TA PO (13:11)
--- NOTE | 2016-06-26 13:16 | Discharge Instructions ---
Discharge Instructions Admission Reason for Admission: Pneumonia with sepsis Discharge Discharge Diagnosis / Problem: Pneumonia with sepsis, COPD exacerbation Discharge Goals Goal(s): Decrease discomfort, Improve function Activity Recommendations Activity Limitations: resume your previous activity Lifting Limitations: none Exercise/Sports Limitations: as tolerated May Resume Sexual Activity: when tolerated Shower/Bathe: no limitations Driving or Machine Use: no limitations . Instructions / Follow-Up Instructions / Follow-Up Medications: - LEVAQUIN: 750mg daily x 4 more days then stop - PREDNISONE: taper, 40mg x 2 days, 30mg x 2 days, 20mg x 2 days then 10mg x 2 days and stop - VENTOLIN INHALER: use up to four times a day as needed for increased shortness of breath/wheezing Pneumonia: vital signs are stable, no need for oxygen, your renal function and white blood cell count are normal. It will likely take you another week until you fully recover. You should have a repeat chest x-ray in 6-8 weeks, Dr. Mcclain can order this as outpatient FOLLOW UP - call office of Dr. Mcclain, request an appointment within one week for hospital follow up, transition of care to go over hospital stay and medications Current Hospital Diet Patient's current hospital diet: AHA Diet (Heart Healthy) Discharge Diet Recommended Diet: AHA Diet (Heart Healthy) Pending Studies Studies pending at discharge: no Laboratory Results Last Resulted CBC 06/25/16 06:16 Red Blood Count 3.63, Mean Corpuscular Volume 97.0, Mean Corpuscular Hemoglobin 34.2, Mean Corpuscular Hemoglobin Concent 35.2, Mean Platelet Volume 11.7, Neutrophils (%) (Auto) 86.0, Lymphocytes (%) (Auto) 7.7, Monocytes (%) (Auto) 6.0, Eosinophils (%) (Auto) 0.0, Basophils (%) (Auto) 0.1, Neutrophils # (Auto) 7.64, Lymphocytes # (Auto) 0.68, Monocytes # (Auto) 0.53, Eosinophils # (Auto) 0.00, Basophils # (Auto) 0.01 Last Resulted BMP 06/26/16 05:13 Medical Emergencies . Who to Call and When: Medical Emergencies: If at any time you feel your situation is an emergency, please call 911 immediately. . Non-Emergent Contact Non-Emergency issues call your: Primary Care Provider Call Non-Emergent contact if: you have a fever, you have any medication questions . Past History Medical & Surgical History: (1) Pneumonia (2) Sepsis . "Provider Documentation" section prepared by Gato Burnett. VTE Core Measure Inpt VTE Proph given/why not?: Enoxaparin (Lovenox)SQ [place] Drug Monitoring Program Search Results: no issues identified
[2016-06-26 13:17] VITALS: BP 144/82; PULSE 77; TEMP 36.6; O2SAT 95
--- NOTE | 2016-06-26 14:41 | Discharge Summary ---
Discharge Summary Admission Date: Jun 24, 2016 at 19:07 Discharge Date: Jun 26, 2016 Discharge Disposition: Home Principal Diagnosis: Pneumonia with sepsis Problems/Secondary Diagnoses: COPD exacerbation Acute hypoxic respiratory failure Acute renal failure Immunizations: Have You Had Influenza Vaccine: No Influenza Vaccine Date: May 09, 2007 History of Tetanus Vaccine?: No History of Pneumococcal: No History of Hepatitis B Vaccine: No Procedures: none Consultations: none Medication Reconciliation New Medications: Albuterol (Ventolin Hfa) 60 Puffs/5400 Mcg Aers 1 PUFF INH QID PRN for Shortness of Breath, #1 INHA 2 Refills Levofloxacin (Levaquin) 750 Mg Tab 750 MG PO DAILY for 4 Days, #4 TAB Prednisone (Prednisone) 10 Mg Tab 40 MG PO UD for 8 Days, #20 TAB Taper: start tomorrow, 40mg daily x 2 days then 30mg daily x 2 days then 20mg daily x 2 days then 10mg daily x 2 days Continued Medications: Amlodipine (Norvasc) 5 Mg Tab 5 MG PO QAM, TAB Indomethacin (Indocin) 50 Mg Cap 50 MG PO TID PRN for APIN, CAP WITH FOOD UNTIL PAIN RESOLVES Lisinopril (Zestril) 40 Mg Tab 40 MG PO QAM, TAB Pantoprazole (Protonix) 40 Mg Tab 40 MG PO QAM Simvastatin (Zocor) 20 Mg Tab 20 MG PO QPM, TAB Discontinued Medications: Azithromycin (Zithromax Z-Tano) 250 Mg Tab 1 PKT PO UD for 5 Days, #6 TAB Prednisone (Prednisone) 20 Mg Tab 20 MG PO DIRECTED, #18 Discharge Exam Patient feeling well, resting comfortably. Discussed that all labs normal, vitals stable, no oxygen needs. Walked with patient in the hallway, no distress , no hypoxia. Discussed plans for discharge, questions answered. Review of Systems: Constitutional: No chills, No fatigue, No fever, No problem reported, No sweats, No weakness, No weight loss Eyes: No diplopia, No discharge, No eye pain, No problem reported, No redness, No worsening of vision ENT: No dental problems, No hearing loss, No nasal symptoms, No problem reported, No sore throat, No tinnitus, No trouble swallowing, No unusual epistaxis Respiratory: + dyspnea on exertion, No cough, No dyspnea at rest, No hemoptysis, No shortness of breath, No sputum, No wheezing Cardiovascular: No PND, No chest pain, No claudication, No edema, No orthopnea, No palpitations, No problem reported Abdomen: No GI bleeding, No constipation, No diarrhea, No nausea, No pain, No problem reported, No vomiting Musculoskeletal: No calf pain, No joint pain, No muscle pain, No problem reported, No swelling Genitourinary - Male: No dysuria, No hematuria, No urinary frequency, No urinary urgency Neurologic: No balance problems, No memory loss, No numbness/tingling, No paralysis, No problem reported, No vertigo, No weakness Psychiatric: No anhedonism, No anxiety, No depression symptoms, No insomnia , No problem reported, No substance abuse Endocrine: No excessive thirst, No excessive urination, No fatigue, No problem reported Hematologic / Lymphatic: No abnormal bleeding/bruising, No clotting problems , No night sweats, No problem reported, No swollen lymph nodes Integumentary: No bleeding, No color change, No itch, No new/changing skin lesions, No problem reported, No rash Physical Exam: General Appearance: no apparent distress, + obese Eyes: normal inspection, EOMI, sclerae normal ENT: normal ENT inspection, hearing grossly normal, pharynx normal Neck: supple, no adenopathy, no JVD, trachea midline Respiratory/Chest: chest non-tender, lungs clear, normal breath sounds, no respiratory distress, no accessory muscle use Cardiovascular: regular rate, rhythm, no edema, no gallop, no JVD, no murmur , normal peripheral pulses Abdomen / GI: normal bowel sounds, non tender, soft, no organomegaly Extremities: normal inspection, no calf tenderness, normal capillary refill , no pedal edema, normal range of motion, pelvis stable 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 Sepsis due to pneumonia: resolved, LA normal, BP stable, cultures negative Community Acquired Pneumonia with Possible Asthma/COPD Exacerbation - treated with Levaquin and Cefepime IV while admitted, will d/c on Levaquin 750mg daily x 3 more days - Solumedrol 40 q12, will d/c on Prednisone 40mg with quick taper over 8 days - Ventolin QID PRN for shortness of breath - follow up with PCP within one week EMELYN Superimposed on CKD: resolved with IV fluids and holding nephrotoxins safe to resume all home medications Smoking smoke 1/5 pack daily add nicotine patch advised about quitting smoking HTN: - cont to hold Amlodipine 5 mg daily - Lisinopril held 2/2 EMELYN, can resume on d/c since EMELYN resolved - Hydralazine 10 mg IV PRN HLD: - Simvastatin 20 mg daily DVT Prophylaxis: - Lovenox 40 mg SC daily Code Status: - FULL RESUSCITATION Total Time Spent: Greater than 30 minutes This includes examination of the patient, discharge planning, medication reconciliation, and communication with other providers. Discharge Instructions Please refer to the electronic Patient Visit Report (Discharge Instructions) for additional information. Follow-Up Dr. Mcclain in one week Additional Copies To Soham Mcclain M.D.
== END 2016-06-26 14:00 | disposition home or self-care (01) | DRG 871 ==
LOC: CANRESERV → ENRESERVDT → ENRESERVTM → C.EDB 13:19 → C.2T 19:07 → EDBEDREQSVC 19:09 → EDBEDREQ 19:09
PROVIDERS: ADMIT Internal Medicine; ATTEND Internal Medicine
DX: A41.9 Sepsis, unspecified organism (principal); J18.9 Pneumonia, unspecified organism; N17.9 Acute kidney failure, unspecified; J44.1 Chronic obstructive pulmonary disease with (acute) exacerbation; J45.901 Unspecified asthma with (acute) exacerbation; E78.5 Hyperlipidemia, unspecified; I12.9 Hypertensive chronic kidney disease with stage 1 through stage 4 chronic kidney disease, or unspecified chronic kidney disease; N18.1 Chronic kidney disease, stage 1; K21.9 Gastro-esophageal reflux disease without esophagitis; F17.210 Nicotine dependence, cigarettes, uncomplicated; Z83.3 Family history of diabetes mellitus; Z82.49 Family history of ischemic heart disease and other diseases of the circulatory system; Z79.52 Long term (current) use of systemic steroids; Z79.899 Other long term (current) drug therapy

== ENCOUNTER → 2016-07-04 | Outpatient (CLI) | payer BC ==
[~2016-07-04] MED LIST changes: +PRED10TA PO; +PRVHFAIN INH
--- NOTE | 2016-07-04 11:34 | DIAGNOSTIC IMAGING REPORT ---
CHEST 2 VIEWS ROUTINE CLINICAL HISTORY: J18.9 [id number] COMPARISON STUDY: 06/25/2016 FINDINGS: The heart remains mildly enlarged. There is no lobar consolidation. There are resolving left basal airspace opacities. There is a 9 mm rounded opacity at the left lung base (this measured 7 mm in October 2012).[ IMPRESSION: 1. Resolving left lower lobe airspace opacities 2. Nonspecific 9 mm nodule at the left lung base Electronically signed by: Guru De La Cruz M.D. 07/04/2016 11:31 AM Dictated Date/Time: 07/04/2016 11:30 AM
== END | disposition home or self-care (01) ==
LOC: C.RAD1850 11:12
PROVIDERS: ATTEND Internal Medicine
DX: J18.9 Pneumonia, unspecified organism (principal); R91.1 Solitary pulmonary nodule

== ENCOUNTER → 2016-08-01 | Outpatient (CLI) | payer BC ==
[~2016-08-01] MED LIST changes: -PRED10TA PO
--- NOTE | 2016-08-01 11:13 | DIAGNOSTIC IMAGING REPORT ---
TWO VIEW CHEST CLINICAL HISTORY: Follow-up pneumonia. FINDINGS: PA and lateral chest radiographs are compared to study dated 07/04/2016. The heart is enlarged. The pulmonary vasculature is noncongested. A calcified granulomas again seen at the left lung base. The long and pleural spaces are otherwise clear. There is no pneumothorax. The bony thorax appears intact. IMPRESSION: No active disease in the chest. Left lower lobe airspace opacities seen previously have resolved. Electronically signed by: Ted Dill M.D. 08/01/2016 11:12 AM Dictated Date/Time: 08/01/2016 11:11 AM
== END | disposition home or self-care (01) ==
LOC: C.RAD1850 10:51
PROVIDERS: ATTEND Internal Medicine
DX: J18.9 Pneumonia, unspecified organism (principal)

== ENCOUNTER → 2017-05-31 | Outpatient (CLI) | payer BC ==
[2017-05-31 13:01] LABS: LYME DISEASE AB IGG NEG (NEG); LYME DISEASE AB IGM NEG (NEG)
== END | disposition home or self-care (01) ==
LOC: C.LABBFT 10:24
PROVIDERS: ATTEND Physician Assistant Medical
DX: M25.572 Pain in left ankle and joints of left foot (principal)

== ENCOUNTER → 2017-07-31 | Outpatient (CLI) | payer BC ==
[~2017-07-31] MED LIST changes: +PANT1TAB3 PO; -PANT1TAB48 PO
--- NOTE | 2017-07-31 11:25 | DIAGNOSTIC IMAGING REPORT ---
L FOOT MIN 3 VIEWS ROUTINE HISTORY: 56 years-old Male M79.673 Pain of [id number] acute left foot pain with history of gout COMPARISON: Left foot radiographs 01/31/2013 TECHNIQUE: 3 views of the left foot FINDINGS: Mild first metatarsophalangeal joint space narrowing with marginal spurring. Subcortical lucency with mild adjacent cortical irregularity involving the medial aspect of the first proximal phalangeal head appears new from prior exam with mild adjacent soft tissue swelling. No evidence of erosions involving the first MTP joint. Mild multidigit interphalangeal degenerative changes. No acute fracture or dislocation. Mild marginal spurring about the dorsal midfoot. No opaque foreign body. IMPRESSION: 1. No acute fracture or dislocation. 2. Subcortical lucency with mild adjacent cortical irregularity involving the medial aspect of the first proximal phalangeal head appears new from prior exam with mild adjacent soft tissue swelling. This is an atypical location for gouty arthropathy however crystalline or erosive arthropathy are differential considerations. Correlate with laboratory values. The above report was generated using voice recognition software. It may contain grammatical, syntax or spelling errors. Electronically signed by: Alfredo Banuelos M.D. 07/31/2017 11:24 AM Dictated Date/Time: 07/31/2017 11:19 AM
== END | disposition home or self-care (01) ==
LOC: C.RAD1850 11:11
PROVIDERS: ATTEND Internal Medicine
DX: M79.672 Pain in left foot (principal)

== ENCOUNTER 2017-08-12 06:56 | Emergency (ER) | payer BC ==
[~2017-08-12] VITALS: Ht 172.7 cm; Wt 115.0 kg
[2017-08-12 07:03] VITALS: TEMP 36.4; Ht 172.7 cm; Wt 115.0 kg
[2017-08-12] MEDS ORDERED: TRAM-10 PO (07:37)
[2017-08-12 07:40] LABS: BASO % 0.3 %; BASO ABS # 0.02 K/uL (0-0.2); EOS % 4.1 %; EOS ABS # 0.24 K/uL (0-0.5); HEMATOCRIT 45.2 % (42-52); HEMOGLOBIN 15.8 g/dL (14.0-18.0); IG# 0.01 K/uL (0.00-0.02); LYMPH % 30.6 %; LYMPH ABS # 1.79 K/uL (1.2-3.4); MEAN CORPUSCULAR HEMOGLOBIN 32.8 pg (25-34); MEAN PLATELET VOLUME 10.8 fL (7.4-10.4); MONO % 14.2 %; MONO ABS # 0.83 K/uL (0.11-0.59); NEUT % 50.6 %; NEUT ABS # 2.96 K/uL (1.4-6.5); PLATELET COUNT 253 K/uL (130-400); RED CELL DISTRIBUTION WIDTH CV 12.8 % (11.5-14.5); RED CELL DISTRIBUTION WIDTH SD 44.1 fL (36.4-46.3); WHITE BLOOD COUNT 5.85 K/uL (4.8-10.8)
[2017-08-12] MEDS ORDERED: HYDR-5688 PO (08:15)
[2017-08-12] MEDS ORDERED: ALL100 PO (08:15)
[2017-08-12 08:28] VITALS: BP 129/92; PULSE 86; O2SAT 96
--- NOTE | 2017-08-12 08:30 | DIAGNOSTIC IMAGING REPORT ---
RIGHT KNEE 3 VIEWS HISTORY: R knee pain COMPARISON: None. FINDINGS: There is no fracture or dislocation. Soft tissues are unremarkable. No radiopaque foreign bodies. No knee effusion. IMPRESSION: Unremarkable right knee by conventional radiographic technique. Electronically signed by: Tex Darden M.D. 08/12/2017 8:29 AM Dictated Date/Time: 08/12/2017 8:28 AM
--- NOTE | 2017-08-12 18:38 | EMERGENCY ROOM VISIT NOTE ---
History First contact with patient: 07:05 Chief Complaint: KNEEPAIN Stated Complaint: RIGHT KNEE PAIN History of Present Illness The patient is a 57 year old white male who presents to the Emergency Room with complaints of right knee pain that started 2 days ago. It has become worse with time. He did contact his PCP yesterday and was phoned in a prescription for indomethacin. He states he has not picked it up yet. The knee pain has become worse and he came here for further evaluation. He has an appointment to see an orthopedic group next week but felt he could not wait. He does have a history of gout in his right ankle. No episodes in his knees. No trauma to his knee. He denies any fevers or chills. His knee is warm. No instability. No locking or catching. Pain is worse with movement. He points to the anterior surface as his area of discomfort. Review of Systems REVIEW OF SYSTEM: HEENT: No dizziness, visual problems, hearing loss, or tinnitus. There is no difficulty swallowing and no oral lesions are present. PULMONARY: No cough, shortness of breath, sputum production or hemoptysis. CARDIOVASCULAR: No chest pain, palpitations, shortness of breath or peripheral edema. GASTROINTESTINAL: No diarrhea, constipation, nausea, vomiting, or abdominal pain. GENITOURINARY: No dysuria, frequency, urgency or nocturia. NEUROLOGIC: No weakness, muscle tenderness, epilepsy or history of neurological problems. MUSCULOSKELETAL: No history of joint tenderness/swelling. Positive history of arthralgias. SKIN: No rashes or lesions. PSYCHIATRIC: No history of depression or mental illness. ENDOCRINE: No history of diabetes, thyroid disorders, or abnormal hair growth. Past Medical/Surgical History Medical Problems: (1) Asthma (2) Hypertension (3) Pneumonia (4) Sepsis Surgical Problems: (1) Hx of cholecystectomy Family History Diabetes mellitus Hypertension Social History Smoking Status: Smoker Current Status UNK Smokeless Tobacco Use: No Alcohol Use: occasionally Drug Use: none Marital Status: Housing Status: lives with significant other Occupation Status: retired Current/Historical Medications Scheduled Allopurinol (Allopurinol), 1 TAB PO DAILY Amlodipine (Norvasc), 5 MG PO QAM Lisinopril (Zestril), 40 MG PO QAM Pantoprazole (Protonix), 40 MG PO QAM Simvastatin (Zocor), 20 MG PO QPM Scheduled PRN Albuterol (Ventolin Hfa), 1 PUFF INH QID PRN for Shortness of Breath Hydrocodone/Acetaminophen 5MG/325MG (Jacob 5MG/325MG), 1-2 TABLET PO Q6 PRN for Pain Indomethacin (Indocin), 50 MG PO TID PRN for APIN Tramadol (Ultram), 50 MG PO 6-8hrs PRN for Pain Physical Exam Vital Signs Date Time Temp Pulse Resp B/P (MAP) Pulse Ox O2 Delivery O2 Flow Rate FiO2 08/12/17 08:28 86 19 129/92 96 Room Air 08/12/17 07:03 36.4 84 18 145/95 97 Room Air Physical Exam Gen.: Well-developed, well-nourished, middle-aged white male, sitting on a bed. Alert and oriented. Obvious discomfort. No acute distress. Skin:Warm and dry with good turgor. No rashes or lesions. No ecchymosis or erythema. The patient is not diaphoretic. No abrasions. Musculoskeletal: Right knee evaluation reveals a mild intra-articular effusion. No redness. Mild warmth. He has focal discomfort with palpation over the patellar tendon, patella, quadriceps tendon. No pain with palpation over the medial or lateral joint lines. Stable collateral ligaments. No pain with circumduction testing. He does complain of some mild discomfort with passive and active flexion and extension. He has full terminal extension. Flexion to greater than 100. Strength is 5/5 with good quad tone. Neurologic: Gross sensation is intact across both lower extremities by soft touch. Peripheral pulses are 2+. Medical Decision & Procedures ER Provider Diagnostic Interpretation: Radiographic Imaging obtained today of the right knee was reviewed by me and read by radiology. No evidence for significant arthritic change. No evidence of fracture. No spurring or other bony abnormality. Laboratory Results 08/12/17 07:25 Red Blood Count 4.81, Mean Corpuscular Volume 94.0, Mean Corpuscular Hemoglobin 32.8, Mean Corpuscular Hemoglobin Concent 35.0, Mean Platelet Volume 10.8, Neutrophils (%) (Auto) 50.6, Lymphocytes (%) (Auto) 30.6, Monocytes (%) (Auto) 14.2, Eosinophils (%) (Auto) 4.1, Basophils (%) (Auto) 0.3, Neutrophils # (Auto ) 2.96, Lymphocytes # (Auto) 1.79, Monocytes # (Auto) 0.83, Eosinophils # (Auto ) 0.24, Basophils # (Auto) 0.02 Test 08/12/17 07:25 White Blood Count 5.85 K/uL (4.8-10.8) Red Blood Count 4.81 M/uL (4.7-6.1) Hemoglobin 15.8 g/dL (14.0-18.0) Hematocrit 45.2 % (42-52) Mean Corpuscular Volume 94.0 fL (80-100) Mean Corpuscular Hemoglobin 32.8 pg (25-34) Mean Corpuscular Hemoglobin Concent 35.0 g/dl (32-36) Platelet Count 253 K/uL (130-400) Mean Platelet Volume 10.8 fL (7.4-10.4) Neutrophils (%) (Auto) 50.6 % Lymphocytes (%) (Auto) 30.6 % Monocytes (%) (Auto) 14.2 % Eosinophils (%) (Auto) 4.1 % Basophils (%) (Auto) 0.3 % Neutrophils # (Auto) 2.96 K/uL (1.4-6.5) Lymphocytes # (Auto) 1.79 K/uL (1.2-3.4) Monocytes # (Auto) 0.83 K/uL (0.11-0.59) Eosinophils # (Auto) 0.24 K/uL (0-0.5) Basophils # (Auto) 0.02 K/uL (0-0.2) RDW Standard Deviation 44.1 fL (36.4-46.3) RDW Coefficient of Variation 12.8 % (11.5-14.5) Immature Granulocyte % (Auto) 0.2 % Immature Granulocyte # (Auto) 0.01 K/uL (0.00-0.02) Uric Acid 9.7 mg/dl (2.6-7.2) CBC and uric acid level obtained today show normal white count. Elevated uric acid 9.7. ED Course Patient was educated regarding today's findings. Conservative care measures were discussed. Knee x-ray was obtained. Labs were obtained. Radiographic imaging is normal. Uric acid level is elevated consistent with gout attack. CBC shows no elevation in white count. Patient was prescribed allopurinol 100 mg daily for the next week. If his symptoms persist, he will increase to 200 mg daily for the following week. He already has an appointment to see his orthopedist next week. [place] he has a perception for indomethacin but has not started it. He will start the tablets 3 times a day until the pain resolves. Importance of altering his diet was discussed. Return to the ED for any acute changes. He may use Tylenol for any mild pain. Prescription was provided for Jacob 5 mg to be used for more severe pain. Driving precautions were given. Medical Decision Possibility of gout, intra-articular loose body, meniscal tear, fracture, cellulitis, prepatellar bursitis, and septic joint were considered among others. [place] Drug Monitoring Program Search Results: no issues identified Medication Reconcilliation Current Medication List: was personally reviewed by me Blood Pressure Screening Blood pressure disposition: Elevated BP felt to be situational Impression Primary Impression: Gout of right knee Departure Information Dispostion Home / Self-Care Condition GOOD Prescriptions Hydrocodone/Acetaminophen 5MG/325MG (Jacob 5MG/325MG) Tab 1-2 TABLET PO Q6 Y for Pain, #12 TAB For Initial Treatment Prov: Jamey Jackman,P.A. 08/12/17 Allopurinol (Allopurinol) 100 Mg Tab 1 TAB PO DAILY, #14 TAB Prov: Jamey Jackman,P.A. 08/12/17 Forms HOME CARE DOCUMENTATION FORM, SPECIAL NARCOTICS INSTRUCTIONS, TYLENOL USE, IMPORTANT VISIT INFORMATION Patient Instructions Gout Eat Prevent, My [facility] [employer] Additional Instructions Elevate the knee to reduce swelling Follow-up with your PCP and orthopedist Continue your indomethacin one pill 3 times a day with food until pain resolves Start allopurinol 1 tablet daily for one week, and increase to 2 tablets daily next week if the pain has not resolved Jacob one to 2 tablets every 6 hours as needed for severe pain-no driving You may use Tylenol every 6 hours for mild discomfort if desired Limit protein and alcohol in your diet Problem Qualifiers Primary Impression: Gout of right knee Gout etiology: idiopathic Chronicity: acute Qualified Codes: M10.061 - Idiopathic gout, right knee
== END 2017-08-12 08:31 | disposition home or self-care (01) ==
LOC: C.EDB 06:57 → C.EDA 08:31
DX: M10.061 Idiopathic gout, right knee (principal); J45.909 Unspecified asthma, uncomplicated; I10 Essential (primary) hypertension; Z87.01 Personal history of pneumonia (recurrent); Z90.49 Acquired absence of other specified parts of digestive tract; Z83.3 Family history of diabetes mellitus; Z82.49 Family history of ischemic heart disease and other diseases of the circulatory system; F17.210 Nicotine dependence, cigarettes, uncomplicated; Z79.899 Other long term (current) drug therapy

== ENCOUNTER → 2017-10-12 | Outpatient (CLI) | payer BC ==
[~2017-10-12] MED LIST changes: +ALL100 PO; +HYDR-5688 PO; +TRAM-10 PO
[2017-10-12 09:35] LABS: BASO % 1.1 %; BASO ABS # 0.07 K/uL (0-0.2); EOS ABS # 0.12 K/uL (0-0.5); HEMATOCRIT 44.5 % (42-52); HEMOGLOBIN 15.7 g/dL (14.0-18.0); IG# 0.01 K/uL (0.00-0.02); LYMPH % 28.7 %; LYMPH ABS # 1.75 K/uL (1.2-3.4); MEAN CELL VOLUME 93.5 fL (80-100); MEAN CORPUSCULAR HGB CONC 35.3 g/dl (32-36); MEAN PLATELET VOLUME 11.4 fL (7.4-10.4); MONO % 11.2 %; MONO ABS # 0.68 K/uL (0.11-0.59); NEUT % 56.8 %; NEUT ABS # 3.46 K/uL (1.4-6.5); PLATELET COUNT 206 K/uL (130-400); RED CELL DISTRIBUTION WIDTH CV 12.8 % (11.5-14.5); WHITE BLOOD COUNT 6.09 K/uL (4.8-10.8)
[2017-10-12 09:49] LABS: ALBUMIN 3.8 gm/dl (3.4-5.0); ALT/SGPT 45 U/L (12-78); AST/SGOT 32 U/L (15-37); BLOOD UREA NITROGEN 8 mg/dl (7-18); CALCIUM 8.5 mg/dl (8.5-10.1); CARBON DIOXIDE 23 mmol/L (21-32); CHOLESTEROL 146 mg/dl (0-200); CREATININE 1.19 mg/dl (0.60-1.40); GLUCOSE 172 mg/dl (70-99); POTASSIUM 4.1 mmol/L (3.5-5.1); SODIUM 138 mmol/L (136-145)
[2017-10-12 09:59] LABS: ALKALINE PHOSPHATASE 58 U/L (45-117); LDL CHOLESTEROL CALCULATED 72 mg/dl; TOTAL PROTEIN 7.2 gm/dl (6.4-8.2)
[2017-10-12 10:16] LABS: HEMOGLOBIN A1C 6.6 % (4.5-5.6)
== END | disposition home or self-care (01) ==
LOC: C.LAB1850 07:35
PROVIDERS: ATTEND Internal Medicine
DX: E78.5 Hyperlipidemia, unspecified (principal); I10 Essential (primary) hypertension; R73.01 Impaired fasting glucose; Z12.5 Encounter for screening for malignant neoplasm of prostate

== ENCOUNTER → 2018-02-12 | Outpatient (CLI) | payer BC ==
[~2018-02-12] MED LIST changes: -AMLO-110 PO; +AMLO5TAB3 PO
[2018-02-12 09:56] LABS: ALBUMIN 4.1 gm/dl (3.4-5.0); ALKALINE PHOSPHATASE 58 U/L (45-117); ALT/SGPT 100 U/L (12-78); AST/SGOT 85 U/L (15-37); BLOOD UREA NITROGEN 11 mg/dl (7-18); CALCIUM 9.4 mg/dl (8.5-10.1); CARBON DIOXIDE 22 mmol/L (21-32); CHOLESTEROL 169 mg/dl (0-200); CREATININE 1.13 mg/dl (0.60-1.40); GLUCOSE 117 mg/dl (70-99); LDL CHOLESTEROL CALCULATED 88 mg/dl; POTASSIUM 4.7 mmol/L (3.5-5.1); SODIUM 132 mmol/L (136-145); TOTAL PROTEIN 7.9 gm/dl (6.4-8.2); URIC ACID 8.1 mg/dl (2.6-7.2)
[2018-02-12 10:03] LABS: HEMOGLOBIN A1C 5.2 % (4.5-5.6)
== END | disposition home or self-care (01) ==
LOC: C.LAB1850 07:49
PROVIDERS: ATTEND Internal Medicine
DX: E11.9 Type 2 diabetes mellitus without complications (principal); M10.9 Gout, unspecified